=== PATIENT | male | born 1985 | race Caucasian/White ===

== ENCOUNTER 2022-06-05 02:20 | Emergency (ER) | payer OTHER ==
[~2022-06-05] VITALS: Ht 190.5 cm; Wt 81.6 kg
[2022-06-05 02:45] VITALS: BP_SYST 126
[2022-06-05] MEDS ORDERED: KETOROLAC TROMETHAMINE 60 MG/2 ML VIAL IM ONE (03:15)
[2022-06-05] MEDS ORDERED: cloNIDine HCL 0.2 MG TABLET PO ONE (03:15)
[2022-06-05] MEDS ORDERED: CYCL10TA24 PO (03:28)
[2022-06-05] MEDS ORDERED: CLON0.2T PO (03:28)
[2022-06-05] MEDS ORDERED: LIDO1ADH77 TD (03:28)
[2022-06-05] MEDS ORDERED: IBUP-1969 PO (03:28)
[2022-06-05] MEDS ORDERED: ACET-2634 PO (03:28)
[2022-06-05] MEDS ORDERED: cloNIDine HCL 0.1 MG TABLET ONE (04:05)
[2022-06-05 06:15] VITALS: BP_SYST 145
== END 2022-06-05 06:16 | disposition home or self-care (01) ==
LOC: SED 02:20
DX: F11.129 Opioid abuse with intoxication, unspecified (principal); F41.9 Anxiety disorder, unspecified; M54.50 Low back pain, unspecified; G89.29 Other chronic pain; Z79.899 Other long term (current) drug therapy
CPT/HCPCS: 99283; 96372; J1885

== ENCOUNTER 2022-08-30 03:40 | Inpatient (IN) | payer OTHER ==
[~2022-08-30] VITALS: Ht 190.5 cm; Wt 82.1 kg
[~2022-08-30 03:40] MED LIST: ACET-2634 PO; CLON0.2T PO; CYCL10TA24 PO; IBUP-1969 PO; LIDO1ADH77 TD
[2022-08-30 03:53] VITALS: BP_SYST 129
[2022-08-30] MEDS ORDERED: KETOROLAC TROMETHAMINE 30 MG VIAL IM ONE (04:15)
[2022-08-30] MEDS ORDERED: MORPHINE 4 MG INJ. 4 MG/ML VIAL IM ONE ×2 (04:15→05:45)
[2022-08-30] MEDS ORDERED: LIDOCAINE PATCH 5% 1 EA TP ONE ×4 (04:15→17:00)
[2022-08-30] MEDS ORDERED: MORPHINE 4 MG INJ. 4 MG/ML VIAL IVP ONE (09:00)
[2022-08-30] MEDS ORDERED: HYDROcodone/ACETAMIN 10-325 MG TAB PO PRN (12:00)
[2022-08-30] MEDS ORDERED: ACETAMINOPHEN 500 MG TABLET PO PRN (12:00)
[2022-08-30] MEDS ORDERED: ONDANSETRON HCL 4 MG/2 ML VIAL IVP PRN (12:00)
[2022-08-30] MEDS ORDERED: NALOXONE HCL 0.4 MG/ML AMP (NARCAN) IVP PRN ×2 (12:00)
[2022-08-30 12:13] VITALS: BP_SYST 124
[2022-08-30] MEDS: HYDROcodone/ACETAMIN 10-325 MG TAB PO PRN ×2 (13:07→16:46)
[2022-08-30] MEDS: NORMAL SALINE 5 ML DISP.SYRIN IVF SCH ×2 (13:08→23:23)
[2022-08-30] MEDS: CYCLOBENZAPRINE HCL 10 MG TABLET (FLEXERIL) PO SCH ×2 (15:09→23:19)
[2022-08-30] MEDS: IBUPROFEN 600 MG TABLET PO SCH ×2 (15:10→23:24)
[2022-08-30 15:38] VITALS: BP_SYST 123
[2022-08-30 20:00] VITALS: BP_SYST 113
[2022-08-30] MEDS ORDERED: OXYCODONE/ACETAMINOPHEN 5-325 TABLET PO PRN (22:30)
[2022-08-30] MEDS: LORazepam 2 MG/ML VIAL IVP PRN (23:25)
[2022-08-31] MEDS: LORazepam 2 MG/ML VIAL IVP PRN (03:29)
[2022-08-31] MEDS: HYDROcodone/ACETAMIN 10-325 MG TAB PO PRN (03:30)
[2022-08-31 03:34] VITALS: BP_SYST 121
[2022-08-31 04:12] LABS: BASOPHILS # (AUTO) 0.1 K/uL (0.0-0.2); BASOPHILS % (AUTO) 0.9 % (0.0-2.0); EOSINOPHILS # (AUTO) 0.1 K/uL (0.0-0.4); EOSINOPHILS % (AUTO) 0.5 % (0.0-4.0); HEMATOCRIT 44.7 % (36-54); HEMOGLOBIN 15.1 g/dL (14.0-18.0); LYMPHOCYTES # (AUTO) 2.3 K/uL (1.0-5.5); LYMPHOCYTES % (AUTO) 24.4 % (20.5-51.5); MEAN CORPUSCULAR HEMOGLOBIN 30 pg (27-31); MEAN CORPUSCULAR HGB CONC 34 % (32-36); MEAN CORPUSCULAR VOLUME 90 fL (79.0-98.0); MONOCYTES # (AUTO) 0.8 K/uL (0.0-1.0); MONOCYTES % (AUTO) 8.4 % (1.7-9.3); NEUTROPHILS # (AUTO) 6.2 K/uL (1.8-7.7); NEUTROPHILS % (AUTO) 65.8 % (40.0-70.0); PLATELET COUNT (AUTO) 290 K/uL (130-430); RED BLOOD CELL COUNT(AUTO) 4.98 MIL/uL (4.2-6.2); RED CELL DISTRIBUTION WIDTH 13.1 % (9.0-15.0); WHITE BLOOD COUNT (AUTO) 9.4 K/uL (4.8-10.8)
[2022-08-31 04:19] LABS: CALCIUM 8.7 mg/dL (8.4-11.0); CREATININE 1.08 mg/dL (0.55-1.30)
[2022-08-31] MEDS: IBUPROFEN 600 MG TABLET PO SCH ×2 (06:00→13:40)
[2022-08-31] MEDS: NORMAL SALINE 5 ML DISP.SYRIN IVF SCH ×2 (06:14→10:10)
[2022-08-31] MEDS ORDERED: LIDOCAINE PATCH 5% 1 EA TP SCH (09:00)
[2022-08-31] MEDS: CYCLOBENZAPRINE HCL 10 MG TABLET (FLEXERIL) PO SCH ×2 (10:09→13:40)
[2022-08-31] MEDS ORDERED: PERC10 PO (11:24)
[2022-08-31 11:26] VITALS: BP_SYST 116
[2022-08-31 13:22] VITALS: BP_SYST 122
[2022-08-31 14:00] VITALS: BP_SYST 122
[2022-08-31] MEDS ORDERED: NAPR-690 PO (17:18)
== END 2022-08-31 14:00 | disposition home or self-care (01) | DRG 552 ==
LOC: SED 03:40 → SMU 06:04
PROVIDERS: ADMIT Preventive Medicine Preventive Medicine/Occupational Environmental Medicine; ATTEND Preventive Medicine Preventive Medicine/Occupational Environmental Medicine
DX: M54.9 Dorsalgia, unspecified (principal); F11.20 Opioid dependence, uncomplicated; G89.29 Other chronic pain; M62.838 Other muscle spasm
CPT/HCPCS: 36415; 80048; 85025; 96372; 96374; 96376; 99285; J1885; J2060; J2270

== ENCOUNTER 2022-08-31 15:54 | Emergency (ER) | payer OTHER ==
[~2022-08-31] VITALS: Ht 190.5 cm; Wt 83.9 kg
[~2022-08-31 15:54] MED LIST changes: +PERC10 PO
[2022-08-31 16:20] VITALS: BP_SYST 143
--- NOTE | 2022-08-31 16:20 | NUR ---
Patient triaged and placed in waiting room. VSS and patient appears in no acute distress at this time. Accompanied by self, awaiting available bed, and MD notified of need for MSE.
--- NOTE | 2022-08-31 16:30 | NUR ---
Patient to ER chair 1 to gown for evaluation. Side rails up. Report given to dangelo carmen
--- NOTE | 2022-08-31 16:32 | NUR ---
Pt brought by self, ambulatory, pt presents to ER with chronic back pain ,states he has Hx of back surgery, VSS, respirations even and unlabored, denies other complains, will cont to monitor.
--- NOTE | 2022-08-31 16:40 | NUR ---
Dr Barcenas evaluating patient at bedside
[2022-08-31] MEDS ORDERED: NACL 0.9% 1,000 ML IV ONE (17:00)
[2022-08-31] MEDS ORDERED: ACETAMINOPHEN I.V. 1000 MG 100 ML IV ONE (17:00)
[2022-08-31] MEDS ORDERED: KETOROLAC TROMETHAMINE 60 MG/2 ML VIAL IM ONE (17:00)
[2022-08-31] MEDS ORDERED: NAPR-690 PO (17:18)
[2022-08-31] MEDS ORDERED: KETOROLAC TROMETHAMINE 30 MG VIAL ONE (17:22)
[2022-08-31] MEDS ORDERED: KETOROLAC TROMETHAMINE 30 MG VIAL IVP ONE (17:30)
--- NOTE | 2022-08-31 17:31 | NUR ---
Patient given written and verbal discharge instructions and verbalizes understanding. ER MD discussed with patient the results and treatment provided. Patient in stable condition. ID arm band removed. Rx of Naproxen given. Patient educated on pain management and to follow up with PMD. Pain Scale 2/10. Opportunity for questions provided and answered. Medication side effect fact sheet provided.
[2022-08-31 17:32] VITALS: BP_SYST 143
== END 2022-08-31 17:31 | disposition home or self-care (01) ==
LOC: SED 15:54
DX: M54.50 Low back pain, unspecified (principal); G89.29 Other chronic pain; Z79.899 Other long term (current) drug therapy
CPT/HCPCS: 99283; 96374; 96361; J1885; J7030; J0131

== ENCOUNTER 2022-09-20 17:36 | Emergency (ER) | payer OTHER ==
[~2022-09-20] VITALS: Ht 177.8 cm; Wt 90.7 kg
[~2022-09-20 17:36] MED LIST changes: +NAPR-690 PO
--- NOTE | 2022-09-20 17:36 | NUR ---
BROUGHT IN BY WILBERTO NOWAK, PLACED IN HALLWAY BED AND TRIAGED. REPORT GIVEN ALTHEA
[2022-09-20 17:50] VITALS: BP_SYST 137
[2022-09-20] MEDS ORDERED: ACETAMINOPHEN 500 MG TABLET PO ONE (18:00)
[2022-09-20] MEDS ORDERED: methocarbamoL 500 MG TABLET PO ONE (18:00)
[2022-09-20] MEDS ORDERED: KETOROLAC TROMETHAMINE 15 MG VIAL IM ONE (18:00)
--- NOTE | 2022-09-20 18:08 | NUR ---
PATIENT STATES "HE IS NOT FEELING WELL." MOTHER AND FATHER AT BEDSIDE REPORTS HE IS COMING OF FENTENYL. COMPLAINING OF BACK PAIN WHICH IS CHRONIC. PAIN 11/11
--- NOTE | 2022-09-20 18:20 | NUR ---
DR MAJANO AT BEDSIDE SPEAKING WITH FAMILY AND PATIENT
[2022-09-20] MEDS ORDERED: NAPR-690 PO (18:36)
[2022-09-20] MEDS ORDERED: LIDO1ADH77 TD (18:36)
[2022-09-20] MEDS ORDERED: METH-634 PO (18:36)
[2022-09-20 18:48] VITALS: BP_SYST 132
--- NOTE | 2022-09-20 18:48 | NUR ---
Patient given written and verbal discharge instructions and verbalizes understanding. ER MD discussed with patient the results and treatment provided. Patient in stable condition. ID arm band removed. IV catheter removed intact and dressing applied, no active bleeding. Rx of LIDOCAINE, ROBAXIN, NAPROXEN given. Patient educated on pain management and to follow up with PMD. Pain Scale 0/10 Opportunity for questions provided and answered. Medication side effect fact sheet provided.
== END 2022-09-20 18:48 | disposition home or self-care (01) ==
LOC: SED 17:36
DX: M54.50 Low back pain, unspecified (principal); G89.29 Other chronic pain; Z79.899 Other long term (current) drug therapy
CPT/HCPCS: 99283; 96372; J1885

== ENCOUNTER 2023-01-30 20:50 | Emergency (ER) | payer OTHER ==
[~2023-01-30] VITALS: Ht 190.5 cm; Wt 86.2 kg
[~2023-01-30 20:50] MED LIST changes: +METH-634 PO
[2023-01-30 21:23] VITALS: BP_SYST 145; PULSE 94; RESP 18; TEMP 98.3; O2SAT 99
[2023-01-30] MEDS ORDERED: IBUPROFEN 800 MG TABLET PO ONE (21:30)
[2023-01-30] MEDS ORDERED: IBUP-1971 PO (22:08)
[2023-01-30] MEDS ORDERED: TRAM50TA2 PO (22:08)
[2023-01-30] MEDS ORDERED: HYDROcodone/ACETAMIN 5-325 MG TAB (NORCO/ VICODIN) PO ONE (22:15)
[2023-01-30 22:20] VITALS: BP_SYST 151; PULSE 90; RESP 17; TEMP 98.3; O2SAT 97
== END 2023-01-30 22:20 | disposition home or self-care (01) ==
LOC: SED 20:50
DX: S90.32XA Contusion of left foot, initial encounter (principal); Z79.899 Other long term (current) drug therapy; X50.0XXA Overexertion from strenuous movement or load, initial encounter; Y93.89 Activity, other specified; Y92.89 Other specified places as the place of occurrence of the external cause; Y99.8 Other external cause status
CPT/HCPCS: 99283